=== PATIENT | male | born 1980 ===

== ENCOUNTER → 2025-06-26 12:59 | Outpatient (REF) | payer OTHER, SELFPAY | LOC: UCDH 12:59 | PROVIDERS: ATTENDING PHYSICIAN Physician Assistant | DX: S89.91XA Unspecified injury of right lower leg, initial encounter (principal) | CPT/HCPCS: 73590; 73610 ==

== ENCOUNTER 2025-06-26 18:27 | Inpatient (IN) | payer OTHER, SELFPAY ==
[2025-06-26 14:39] VITALS: BP 142/90
[2025-06-26] MEDS: ROXICODONE 5 MG PO ×2 (15:31→23:25)
--- NOTE | 2025-06-26 16:18 | ED.GENMED ---
History of Present Illness
General
Chief Complaint: Musculo-Skeletal Complaint
Time Seen by Provider: 06/26/25 14:58
History of Present Illness
History of Present Illness:
45-year-old male with history of hypertension presents to the emergency department for evaluation of Right lower extremity injury after a trip and fall today. He went to an outside urgent care and was sent for x-rays, after x-ray results was
deferred to the ED by the radiology team. He reports some paresthesias to the toes but no overt numbness. He is not on anticoagulants
Review of Systems
Review of Systems
Allergies reviewed?: Yes
All Other Systems: ROS reviewed and negative except as documented in HPI and ROS
Phy Exam
Physical Exam
Physical Exam:
GEN: Well appearing, NAD, WDWN
HEENT: Oral mucosa moist, no scleral icterus
Cardiac: Regular rate
Lung: No respiratory distress, no tachypnea
MSK: Swelling of the right lower leg compatible with known fracture, strong dorsalis pedis pulse, intact sensation to the toes
Skin: Good color, no pallor or jaundice, no rashes
Neuro: AO x3, moves all extremities freely
Psych: Calm, cooperative
Course
Orders/Labs/Results
Orders:
Orders
06/26/25 15:26
Oxycodone [Roxicodone] 5 mg PO NOW STA
Vital Signs
Initial and Last Documented VS:
Initial Vital Signs
Pulse Resp BP Pulse Ox
77 18 142/90 100
06/26/25 14:39 06/26/25 14:39 06/26/25 14:39 06/26/25 14:39
Last Documented Vital Signs
Pulse Resp BP Pulse Ox
77 18 142/90 100
06/26/25 14:39 06/26/25 14:39 06/26/25 14:39 06/26/25 14:39
MDM/Problems Addressed
MDM/Problems Addressed:
Sugar-tong and posterior short leg splint applied, spoke with orthopedics who recommended admission for operative intervention tomorrow
*Pulse Oximetry
SaO2: 100
Oxygen Mode of Delivery: Room air
Patient hypoxic: no
*Critical Care Note
Total Time (30-74mins, 75-104mins- exclusive of procedures): Not Applicable
ED Attending Note
-
Portions of this chart may have been created with voice recognition software.� Occasional wrong word or��sound alike� substitutions may have occurred due to the inherent limitations of voice recognition software.
Discharge Plan
Departure
Patient Disposition: Admit
Date of Disposition: 06/26/25
Time of Disposition: 16:19
Admit to: Med/Surg
Presentation/result/management discussed w/ accepting MD/DO: Hospitalist
Discharge Problem:
Closed fracture of right tibia and fibula
Referrals:
Robert You MD [Family Provider, Internal Medicine]
Interventions
Interventions:
*Risk Screen - Suicide Last Done: 06/26/25 14:31
*Neglect/Abuse Screening Last Done: 06/26/25 14:31
*ED- Fall Risk Assessment Last Done: 06/26/25 14:31
*ED COVID-19 Vaccine History Last Done: 06/26/25 14:33
Discharge Date and Time
Print Language: UGANDAN
[2025-06-26 16:39] LABS: Hematocrit 40.1 % (39.0-52.0); Hemoglobin 13.3 g/dL (13.0-18.0); Mean Corp Hgb Conc. 33.2 g/dL (33.0-37.0); Mean Corpuscular Volume 80.4 fL (80.0-94.0); Nucleated Red Blood Cells % 0 % (-); Platelet Count 223 10^3/uL (130-400); Red Cell Dist. Width 12.9 % (11.5-14.5)
[2025-06-26 16:58] LABS: ALT (SGPT) 14 U/L (0-50); AST (SGOT) 20 U/L (17-59); Albumin 5.2 g/dl (3.5-5.0); Alkaline Phosphatase 51 U/L (38-126); Blood Urea Nitrogen 22 mg/dl (9-20); Calcium 9.8 mg/dl (8.4-10.2); Carbon Dioxide 24 mmol/L (22-30); Chloride 103 mmol/L (98-107); Glucose 116 mg/dl (70-99); Potassium 4.2 mmol/L (3.5-5.1); Sodium 137 mmol/L (135-145); Total Protein 8.4 g/dl (6.3-8.2); eGFR > 60.00
[2025-06-26] MEDS: DILAUDID 1 MG IV (17:15)
[2025-06-26] MEDS: ZOFRAN 4 MG IV (17:22)
[2025-06-26 17:23] VITALS: BP 140/80
--- NOTE | 2025-06-26 17:57 | HPS.HSE ---
Family Physician
-
Family Physician: Robert You
Chief Complaint
-
Right tib-fib fracture
History of Present Illness
Mr. Choi is a 45-year-old male with a medical history of hypertension who presented with right ankle pain after mechanical fall at home. He had been bringing cold water outside to workers at his house when he tripped, rolled his right ankle,
and fell. He felt immediate pain and swelling. Staff at urgent care did not have an x-ray machine available and so the patient presented to the ED at [facility] for further evaluation. X-ray of his right lower extremity showed
nondisplaced proximal right fibular fracture and mildly displaced distal right tibial fracture. Sugar-tong splint was applied and he was given pain medications. He has remained medically stable. He has been admitted for further evaluation and
management.
Medical History
Past Medical History
Past Medical History: Reports HTN
Past Surgical History: Reports None
Social History
Tobacco: Non-smoker
Alcohol: None
Drug: None
Personal:
Living: With Family
Employment: Employed
Family History
Family History: Not pertinent
Allergies / Home Medications
Allergies reflects when Allergies were last updated in [employer].
Home Medications with original date entered in [employer]
Allergy/Medication List:
Allergies
Allergy/AdvReac Type Severity Reaction Status Date / Time
No Known Allergies Allergy Unverified 06/26/25 14:33
Review of Systems
-
History Source: Patient
A 12 point ROS was completed and negative except as noted: Yes
Musculoskeletal: Reports Joint Pain (Right ankle pain)
Physical Exam
Vital Signs
Vital Signs
Pulse Resp BP Pulse Ox
70 18 140/80 98
06/26/25 17:23 06/26/25 17:23 06/26/25 17:23 06/26/25 17:23
Physical Exam
General: No Apparent Distress
Laboratory Results
-
06/26/25 16:27
06/26/25 16:27
Laboratory Results
Total Bilirubin 1.3 mg/dl (0.2-1.3) 06/26/25 16:27
AST 20 U/L (17-59) 06/26/25 16:27
ALT 14 U/L (0-50) 06/26/25 16:27
Alkaline Phosphatase 51 U/L (38-126) 06/26/25 16:27
Impression/Plan
-
General: No Apparent Distress, Comfortable and Conversant
HEENT: NormoCephalic, Moist mucous membranes, Atraumatic
Respiratory: Clear and Non Labored Respirations
Cardiac: S1/S2 and Regular Rhythm; No Rub or Gallop
GI: Soft, Non Tender, Non Distended and Normal Bowel Sounds
Musculoskeletal: No Edema, right lower extremity sugar-tong splint
Skin: Warm and dry
: NO Yoon
Neuro: Awake, Alert, Nonfocal/grossly intact
Psych: Calm and Intact Judgment/Insight
Mr. Choi is a 45-year-old male with a medical history of hypertension who presented with right ankle pain after mechanical fall at home. He had been bringing cold water outside to workers at his house when he tripped, rolled his right ankle,
and fell. He felt immediate pain and swelling. Staff at urgent care did not have an x-ray machine available and so the patient presented to the ED at [facility] for further evaluation. X-ray of his right lower extremity showed
nondisplaced proximal right fibular fracture and mildly displaced distal right tibial fracture. Sugar-tong splint was applied and he was given pain medications. He has remained medically stable. He has been admitted for further evaluation and
management.
Right tib-fib fracture:
- Sugar-tong splint in place
- N.p.o. after midnight for OR with Ortho in the morning 06/27
- Continue multimodal pain control
- He is low risk for planned surgical intervention, he is an avid cyclist with a high functional performance level
Hypertension:
- Continue home amlodipine 5 mg at night and losartan 100 mg at night
- Monitor and adjust regimen as needed
DVT prophylaxis: Subcu heparin
CODE STATUS: Full code
Total time spent on today's encounter was 60 minutes
[2025-06-26 19:25] VITALS: BP 147/100
[2025-06-26] MEDS: 0.45%NACL 1000 IV (19:43)
--- NOTE | 2025-06-26 19:43 | PTCARENOTE ---
Pt ambulated using crutches from stretcher to bed at 1943. Pt AAOx3. VSS. Admission assessment complete. IVF infusing per order. Sugar-tong splint in place c/d/i. Plan for OR tomorrow. Pt educated on plan of care. Pt oriented to room, call cordero
within reach, bed locked and in lowest position. at bedside.
[2025-06-26 19:45] VITALS: BMI 22.9
[2025-06-26] MEDS: NORVASC 5 MG PO (21:22)
[2025-06-26] MEDS: COZAAR 100 MG PO (21:22)
[2025-06-26] MEDS: TYLENOL 1000 MG PO (21:22)
[2025-06-26 23:00] VITALS: BP 140/85
[2025-06-26] MEDS: HEPARIN 5000 UNITS SC (23:26)
[2025-06-27] VITALS (11 sets, daily range): BP systolic 106–156; BP diastolic 73–108
[2025-06-27] MEDS: ROXICODONE 5 MG PO (05:15)
[2025-06-27 06:49] LABS: INR 1.04; PT 14.1 Sec (11.4-14.6)
[2025-06-27 06:50] LABS: APTT 29.4 Sec (23.4-35.0)
--- NOTE | 2025-06-27 08:16 | W.PN.UPDATE ---
Update Note
Progress Note Update
Full orthopedic consult dictated:
Patient has right distal tibial fracture along with right proximal fibular fracture which will require open reduction internal fixation with tibial nail later today. He will remain n.p.o. and Ancef on-call to operating room. Surgical consent signed
by patient and surgical location marked.
[2025-06-27] MEDS: TYLENOL 1000 MG PO (08:30)
[2025-06-27] MEDS: HEPARIN 5000 UNITS SC (08:30)
--- NOTE | 2025-06-27 12:10 | CM ---
CM following re: discharge planning.
Reviewed pt's chart, met with pt.
Pt is a 45 year old male, admitted with primary dx of Right tib-fib fracture. pt is aware he is to OTR today at 3:00 p.m.
Pt reports he lives with spouse and 2 sons 2SH, 1 step to enter. Pt described himself as independent in all areas [employer], went to urgent care after he fell and uses crutches after attending urgent care.
PT and OT will evaluate the pt after OR to determine a level of care at discharge.
PCP: Robert You
Pharmacy: [facility]
D/C plan: most likely home with family support vs VN services/outpatient PT/OT.
CM will follow with discharge plan updates as hospitalization progresses
--- NOTE | 2025-06-27 13:50 | W.PN.HOSP.TC ---
Today's Communication/Plan
-
Assessment / Plan
Assessment / Plan
General: No Apparent Distress, Comfortable and Conversant
HEENT: NormoCephalic, Moist mucous membranes, Atraumatic
Respiratory: Clear and Non Labored Respirations
Cardiac: S1/S2 and Regular Rhythm; No Rub or Gallop
GI: Soft, Non Tender, Non Distended and Normal Bowel Sounds
Musculoskeletal: No Edema, right lower extremity sugar-tong splint
Skin: Warm and dry
: NO Yoon
Neuro: Awake, Alert, Nonfocal/grossly intact
Psych: Calm and Intact Judgment/Insight
Mr. Choi is a 45-year-old male with a medical history of hypertension who presented with right ankle pain after mechanical fall at home. He had been bringing cold water outside to workers at his house when he tripped, rolled his right ankle,
and fell. He felt immediate pain and swelling. Staff at urgent care did not have an x-ray machine available and so the patient presented to the ED at [facility] for further evaluation. X-ray of his right lower extremity showed
nondisplaced proximal right fibular fracture and mildly displaced distal right tibial fracture. Sugar-tong splint was applied and he was given pain medications. He has remained medically stable. He has been admitted for further evaluation and
management.
Right tib-fib fracture:
- Sugar-tong splint in place
- N.p.o. since midnight for OR with Ortho today 06/27
- Continue multimodal pain control
- He is low risk for planned surgical intervention, he is an avid cyclist with a high functional performance level
Hypertension:
- Continue home amlodipine 5 mg at night and losartan 100 mg at night
- Monitor and adjust regimen as needed
DVT prophylaxis: Subcu heparin
CODE STATUS: Full code
Total time spent on today's encounter was 35 minutes
Anticipated Discharge: 24 - 48 hours
Subjective/Interval History
-
Date of Service: June 27, 2025
Patient was seen and examined at bedside this morning. Comfortable. Awaiting OR today with orthopedics.
Objective Data
-
Labs:
Laboratory Results
06/27/25
05:42
PT 14.1
INR 1.04
APTT 29.4
Vital Signs:
Vital Signs
Temp Pulse Resp BP Pulse Ox
98.8 F 67 16 120/82 98
06/27/25 07:15 06/27/25 07:15 06/27/25 07:15 06/27/25 07:15 06/27/25 07:15
Review of Systems
-
History Source: Patient
All other systems: Reviewed and negative
Musculoskeletal: Reports Joint Pain (Right lower extremity pain)
Physical Exam
-
General: No Apparent Distress
--- NOTE | 2025-06-27 15:15 | PTCARENOTE ---
Patient transported to OR via volunteer escort and bed. Ancef tubed to OR per receiving RN request.
[2025-06-27] MEDS: TYLENOL PO (15:16)
[2025-06-27] MEDS: HEPARIN SC (15:16)
--- NOTE | 2025-06-27 19:15 | W.IMMPOSTOP ---
Surgical Immed Post Op Note
-
Primary Surgeon: Nicolas Gomez MD
Assisting Surgeon:
Pre-op Diagnosis: right tibial shaft fracture
Post-op Diagnosis: right tibial shaft fracture
Procedure Performed: intramedullary fixation right tibia
Anesthesia Type: general
Specimen / Cultures: none
Estimated Blood Loss: 20mL
Complications: none apparent
Operative Findings: spiral distal tibial shaft fracture
Tourniquet time: 120 minutes @ 250mm Hg
Implants: [place] T2 Alpha [id number] tibial nail
Operative dictation #: [id number]
[2025-06-27] MEDS: DILAUDID 0.5 MG IV ×2 (19:19→19:26)
[2025-06-27] MEDS: DILAUDID 0.25 MG IV (20:19)
[2025-06-27] MEDS: NORVASC 5 MG PO (22:14)
[2025-06-27] MEDS: ANCEF 5 IV (22:14)
[2025-06-27] MEDS: COZAAR 100 MG PO (22:14)
[2025-06-27] MEDS: COLACE 100 MG PO (22:14)
[2025-06-28] MEDS: ROXICODONE 10 MG PO ×4 (02:27→20:31)
[2025-06-28 03:00] VITALS: BP 124/83
[2025-06-28] MEDS: ANCEF 5 IV (06:20)
[2025-06-28 06:49] LABS: Blood Urea Nitrogen 13 mg/dl (9-20); Calcium 9.1 mg/dl (8.4-10.2); Carbon Dioxide 26 mmol/L (22-30); Chloride 102 mmol/L (98-107); Estimated Creatinine Clearance > 125 ml/min; Glucose 111 mg/dl (70-99); Potassium 4.2 mmol/L (3.5-5.1); Sodium 136 mmol/L (135-145); eGFR > 60.00
[2025-06-28 06:52] LABS: Hematocrit 34.6 % (39.0-52.0); Hemoglobin 11.4 g/dL (13.0-18.0)
[2025-06-28 07:10] VITALS: BP 126/77
[2025-06-28] MEDS: COLACE 100 MG PO ×2 (07:33→20:31)
[2025-06-28] MEDS: TYLENOL 1000 MG PO ×3 (07:34→21:58)
[2025-06-28] MEDS: LOVENOX 40 MG SC (07:34)
--- NOTE | 2025-06-28 08:12 | W.PN.ORTHO ---
Today's Communication / Plan
-
45 yo M POD1 right tibia IM nail under the direction of Dr. Gomez
--WBAT to RLE with walking boot and assistive device. We appreciate the assistance of PT/OT.
--Recommend ASA 325 mg daily x4 weeks for DVT ppx.
--Pain control prn. Ice and elevation for edema control.
--Follow up 2 weeks post-op for suture/staple removal and repeat x-rays.
--Case management consult for dc planning.
--Orthopedics will continue to follow along.
Assessment
.
Distal Motor Intact: Yes
Dressing:
Clean, dry and intact.
Plan
.
Surgery / Date: R tibia IM nail, Jason, 06/27
DVT Prophylaxis: Aspirin
Activity:
Out of bed.
PT/OT
Subjective
.
.:
Mr. Choi is POD1 following his right tibia IM nail performed by Dr. Gomez. He is resting comfortably in bed this morning. He endorses aching in his lower leg, but states his pain is improved following the surgery.
Vital Signs and Labs
.
Vital Signs and Labs:
Lab Results
06/28/25 05:51
06/28/25 05:51
Temp Pulse Resp BP Pulse Ox
98.4 F 63 16 126/77 98
06/28/25 07:10 06/28/25 07:10 06/28/25 07:10 06/28/25 07:10 06/28/25 07:10
PT 14.1 Sec (11.4-14.6) 06/27/25 05:42
INR 1.04 06/27/25 05:42
Physical Exam
-
Directed exam of the right lower extremity reveals surgical dressing clean, dry and intact. Mild tenderness about the proximal tibia. Calf soft and nontender. Patient able to wiggle toes, plantar and dorsiflex ankle. Neurovascularly intact distally.
[2025-06-28 10:00] VITALS: BP 124/73; PULSE 67
[2025-06-28 11:30] VITALS: BP 133/82
[2025-06-28] MEDS: SENOKOT-S 1 TABLET PO (11:49)
--- NOTE | 2025-06-28 11:56 | CM ---
CM following re: discharge planning.
Reviewed pt's chart, met with pt.
Pt is POD1 right tibia IM nail, doing well.
PT and OT evaluations noted - pt has no skilled PT/OT needs, has a surgical boot and crutches and able to navigate safely.
According to MD pt is medically stable to be discharged today. Pt is aware, expressed his agreement and pt stated his spouse will transport home.
D/c plan: home with no after care VN needs. Spouse to transport.
--- NOTE | 2025-06-28 15:00 | W.PN.HOSP.TC ---
Today's Communication/Plan
-
Assessment / Plan
Assessment / Plan
General: No Apparent Distress, Comfortable and Conversant
HEENT: NormoCephalic, Moist mucous membranes, Atraumatic
Respiratory: Clear and Non Labored Respirations
Cardiac: S1/S2 and Regular Rhythm; No Rub or Gallop
GI: Soft, Non Tender, Non Distended and Normal Bowel Sounds
Musculoskeletal: No Edema, right lower extremity with postsurgical dressing in place
Skin: Warm and dry
: NO Yoon
Neuro: Awake, Alert, Nonfocal/grossly intact
Psych: Calm and Intact Judgment/Insight
Mr. Choi is a 45-year-old male with a medical history of hypertension who presented with right ankle pain after mechanical fall at home. He had been bringing cold water outside to workers at his house when he tripped, rolled his right ankle,
and fell. He felt immediate pain and swelling. Staff at urgent care did not have an x-ray machine available and so the patient presented to the ED at [facility] for further evaluation. X-ray of his right lower extremity showed
nondisplaced proximal right fibular fracture and mildly displaced distal right tibial fracture. Sugar-tong splint was applied and he was given pain medications. He has remained medically stable. He has been admitted for further evaluation and
management.
Right tib-fib fracture:
- Status post ORIF yesterday 06/27 with IM nail
- Continue multimodal pain control
- No skilled therapy needs
- When medically stable will be discharged to home with postsurgical boot and crutches
- Anticipate discharge to home in the next 24 hours
Hypertension:
- Continue home amlodipine 5 mg at night and losartan 100 mg at night
- Monitor and adjust regimen as needed
DVT prophylaxis: Subcu heparin
CODE STATUS: Full code
Total time spent on today's encounter was 35 minutes
Anticipated Discharge: 24 - 48 hours
Subjective/Interval History
-
Date of Service: June 28, 2025
Patient was seen and examined at bedside this morning. He is status post ORIF yesterday for right tib-fib fracture. He tolerated the procedure well. Having some postoperative pain today.
Objective Data
-
Labs:
Laboratory Results
06/28/25
05:51
Hgb 11.4 L
Hct 34.6 L
Sodium 136
Potassium 4.2
Chloride 102
Carbon Dioxide 26
BUN 13
Creatinine 0.8
Glucose 111 H
Calcium 9.1
Vital Signs:
Vital Signs
Temp Pulse Resp BP Pulse Ox
98.2 F 61 16 133/82 97
06/28/25 11:30 06/28/25 11:30 06/28/25 11:30 06/28/25 11:30 06/28/25 11:30
I&O
06/27/25 06/28/25 06/29/25
06:59 06:59 06:59
Intake Total 400 / 400 960 / 960
Output Total 1750 / 1750
Balance 400 / 400 -790 / -790
Review of Systems
-
History Source: Patient
All other systems: Reviewed and negative
Musculoskeletal: Reports Joint Pain (Right leg pain)
Physical Exam
-
General: No Apparent Distress
[2025-06-28 15:05] VITALS: BP 141/76
[2025-06-28] MEDS: COZAAR 100 MG PO (21:58)
[2025-06-28] MEDS: DILAUDID 0.25 MG IV (22:01)
[2025-06-28] MEDS: NORVASC 5 MG PO (22:03)
[2025-06-28 22:30] VITALS: BP 157/101
[2025-06-29] MEDS: ROXICODONE 10 MG PO ×2 (03:51→07:52)
[2025-06-29 07:10] VITALS: BP 142/100
[2025-06-29] MEDS: TYLENOL 1000 MG PO (07:50)
[2025-06-29] MEDS: COLACE 100 MG PO (07:50)
[2025-06-29] MEDS: LOVENOX 40 MG SC (07:51)
--- NOTE | 2025-06-29 08:35 | W.PN.UPDATE ---
Update Note
Progress Note Update
Mr. Choi is POD2 following his right tibia IM nail. He is resting comfortably in bed this morning. He does endorse increased pain overnight. He was able to work with physical therapy yesterday, and reports this went well.
Directed exam of the right lower extremity reveals surgical dressing clean, dry and intact. Mild tenderness about the proximal tibia. Calf soft and nontender. Patient able to wiggle toes, plantar and dorsiflex ankle. Neurovascularly intact distally.
45 yo M POD2 right tibia IM nail under the direction of Dr. Gomez
--WBAT to RLE with walking boot and assistive device. We appreciate the assistance of PT/OT.
--Recommend ASA 325 mg daily x4 weeks for DVT ppx once dc.
--Pain control prn. Ice and elevation for edema control.
--Follow up 2 weeks post-op for suture/staple removal and repeat x-rays.
--Patient is stable for dc post-operatively from an orthopedic standpoint. Dc once medically stable. Orthopedics will sign off for now. Please reach out with any additional orthopedic questions or concerns.
[2025-06-29 11:23] VITALS: BP 155/88
--- NOTE | 2025-06-29 13:25 | W.DCSUMMARY ---
Addendum entered and electronically signed by Johnson Perdue DO 06/29/25 14:38:
Actually discharged with prescription for oxycodone 5 mg every 6 hours, not 10 mg every 4 hours
Addendum entered and electronically signed by Johnson Perdue, 06/29/25 13:28:
He will need to continue taking full-strength aspirin (325 mg) daily for 4 weeks postoperatively prevent blood clots.
Original Note:
Discharge Summary
Discharge Data
Date of Admission: 06/26/25
Date of Discharge: 06/29/25
Total time spent discharging patient (in min): 45
-
Pending Results: No
Hospital Course
Mr. Choi is a 45-year-old male with a medical history of hypertension who presented with right ankle pain after mechanical fall at home. He had been bringing cold water outside to workers at his house when he tripped, rolled his right ankle,
and fell. He felt immediate pain and swelling. Staff at urgent care did not have an x-ray machine available and so the patient presented to the ED at [facility] for further evaluation. X-ray of his right lower extremity showed
nondisplaced proximal right fibular fracture and mildly displaced distal right tibial fracture. Sugar-tong splint was applied and he was given pain medications. He has remained medically stable. He was admitted for further evaluation and
management.
He underwent ORIF 06/27 with intramedullary nail placement. He tolerated the procedure well. He did have significant pain postoperatively which has been managed with scheduled Tylenol and as needed oxycodone. He was able to ambulate with the
assistance of crutches and postsurgical boot. He has no skilled needs at this time. He was continued on his home blood pressure medications during his hospitalization. He has remained hemodynamically stable. He is medically stable for discharge
to home. He will need to follow-up with orthopedics in 2 weeks. He was given a prescription for oxycodone. He will be continued on his home losartan 100 mg at night and amlodipine 5 mg at night (which are not new medications for him, they were
home medications not accurately reflected on medication reconciliation).
General: No Apparent Distress, Comfortable and Conversant
HEENT: NormoCephalic, Moist mucous membranes, Atraumatic
Respiratory: Clear and Non Labored Respirations
Cardiac: S1/S2 and Regular Rhythm; No Rub or Gallop
GI: Soft, Non Tender, Non Distended and Normal Bowel Sounds
Musculoskeletal: No Edema, right lower extremity with postsurgical dressing in place
Skin: Warm and dry
: NO Yoon
Neuro: Awake, Alert, Nonfocal/grossly intact
Psych: Calm and Intact Judgment/Insight
Discharge Plan
-
Patient Disposition: Home (Routine Discharge)
Discharge Diagnosis/Procedures: Right tibia intramedullary nail under the direction of Dr. Gomez
Activity: As tolerated and With Walker
Driving Restrictions: Not until seen by your Dr
Activity Restrictions/Additional Instructions:
Mr. Choi is a 45-year-old male with a medical history of hypertension who presented with right ankle pain after mechanical fall at home. He had been bringing cold water outside to workers at his house when he tripped, rolled his right ankle,
and fell. He felt immediate pain and swelling. Staff at urgent care did not have an x-ray machine available and so the patient presented to the ED at [facility] for further evaluation. X-ray of his right lower extremity showed
nondisplaced proximal right fibular fracture and mildly displaced distal right tibial fracture. Sugar-tong splint was applied and he was given pain medications. He has remained medically stable. He was admitted for further evaluation and
management.
He underwent ORIF 06/27 with intramedullary nail placement. He tolerated the procedure well. He did have significant pain postoperatively which has been managed with scheduled Tylenol and as needed oxycodone. He was able to ambulate with the
assistance of crutches and postsurgical boot. He has no skilled needs at this time. He was continued on his home blood pressure medications during his hospitalization. He has remained hemodynamically stable. He is medically stable for discharge
to home. He will need to follow-up with orthopedics in 2 weeks. He was given a prescription for oxycodone. He will be continued on his home losartan 100 mg at night and amlodipine 5 mg at night (which are not new medications for him, they were
home medications not accurately reflected on medication reconciliation).
Referrals:
Robert You MD [Family Provider, Internal Medicine]
Nicolas Gomez MD [Active, Orthopedics]
Referral Note: post op f/u
Prescriptions:
New
docusate sodium 100 mg Capsule
100 mg PO BID 5 Days Qty: 10 0RF
oxycodone 10 mg Tablet
10 mg PO Q4HPRN PRN (Reason: moderate-severe pain) Qty: 12 0RF
Rx Instructions:
take half a tab (5 mg) as needed for less severe pain
acetaminophen [Tylenol Extra Strength] 500 mg Tablet
1,000 mg PO TID Qty: 20 0RF
amlodipine 5 mg Tablet
5 mg PO HS 30 Days Qty: 30 0RF
losartan 100 mg Tablet
100 mg PO HS 30 Days Qty: 30 0RF
Discharge Orders:
Discharge Patient (As Directed); Ordered 06/29/25
Ordered By: Johnson Perdue
Discharge Date and Time
Print Language: HEBREW
[2025-06-29] MEDS: TYLENOL 650 MG PO (14:13)
[2025-06-29 14:24] VITALS: BP 132/90
== END 2025-06-29 15:37 | disposition home or self-care (01) | DRG 494 ==
LOC: 2 SOUTH 18:27
PROVIDERS: Physician Assistant; ADMITTING PHYSICIAN Internal Medicine; CONSULT PHYSICIAN Student in an Organized Health Care Education/Training Program; EMERGENCY PHYSICIAN Emergency Medicine; FAMILY PHYSICIAN Internal Medicine Critical Care Medicine
PROC: 0QSG06Z Reposition Right Tibia with Intramedullary Internal Fixation Device, Open Approach (ICD-10-PCS; 2025-06-27)
PROC: 2W6QXZZ Traction of Right Lower Leg (ICD-10-PCS; 2025-06-27)
DX: S82.201A Unspecified fracture of shaft of right tibia, initial encounter for closed fracture (principal); I10 Essential (primary) hypertension; S82.301A Unspecified fracture of lower end of right tibia, initial encounter for closed fracture; S82.831A Other fracture of upper and lower end of right fibula, initial encounter for closed fracture; W01.0XXA Fall on same level from slipping, tripping and stumbling without subsequent striking against object, initial encounter
CPT/HCPCS: 73590; 76000; 80048; 80053; 85014; 85018; 85025; 85610; 85730; 86850; 86900; 86901; 96374; 96375; 97116; 97162; 99285